=== PATIENT | female | born 1950 | race Caucasian/White ===

== ENCOUNTER 2017-01-22 09:54 | Day surgery (SDC) | payer BC ==
[2017-01-20 12:05] LABS: HEMOGLOBIN 14.3 g/dL (12.0-16.0)
[2017-01-20 12:06] LABS: HEMATOCRIT 42.7 % (36.0-48.0)
--- NOTE | ~2017-01-22 | OP ---
Record Of Operation [facility] [address] [place]. 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 PROCEDURES: 1. Right endoscopic total ethmoidectomy. 2. Right endoscopic endonasal polypectomy. 3. Right endoscopic frontal sinusotomy. 4. Stereotactic monitoring. ANESTHESIA: General. COMPLICATIONS: None. COUNTS: All counts correct following the procedure. ESTIMATED BLOOD LOSS: 10 mL. PREOPERATIVE INFORMED CONSENT: We discussed risks and benefits of surgery including bleeding, infection, possible CSF leak, possible ocular injury including blindness, possible recurrence of the papilloma, and consent is on the chart. PROCEDURE IN DETAIL: The patient was brought to the operating suite, placed on the operating table in supine position. General endotracheal anesthesia was initiated without incident. The patient's head and neck was cleaned, prepped, and draped in the usual sterile fashion. Following this, the Safe N Clear stereotactic monitor device was placed on the forehead and calibration was performed noted to be in excellent calibration with good resolution. Following this, starting on the right hand side of the nose using a 0 degree endoscope the inferior middle turbinate and right lateral nasal wall as well as the right periorbital region was injected with approximately 7 mL total of 1% lidocaine with 1:100,000 epinephrine for hemostasis. Following this, starting with a 0 degree endoscope using a straight [place], several polyps were removed from the ethmoid cavity and these were sent for frozen section and these came back consistent with possible inverting papilloma. Then using the Xomed sinus shaver, the polypoid disease was removed back to the base of what was left of the middle turbinate. Using the stereotactic monitoring throughout the case to avoid injury to the orbit or the base of skull. The inverting papilloma and polypoid disease was tracked all the way back to the fovea ethmoidalis. There was also noted to be a small defect in the lamina papyracea that was present from previous surgery and care was taken to avoid this area. The nasal frontal duct was cleared of polypoid disease up to the apex of the middle turbinate. The remaining ethmoid air cells were marsupialized and the polypoid disease removed up to the base of skull where great care was taken at the skull base, thus removing the polypoid disease out of the mucosa service taking care not to disrupt any bone at this level. Specimens sent in formalin for permanent pathology. Bleeding was controlled Record Of Operation [address] [address] NAME: SEKOU LEE : 46 STATUS : [facility]#: [id number] AGE: 66 ADM/REG DATE : 01/22/17 MR#: [id number] REPORT SERV DATE: 01/22/17 DICTATED BY: ELLEN HODGE DATE: 01/22/17 REPORT STATUS : Draft TRANSCRIBED BY: MODL DATE: 01/22/17 using topical Adrenalin on pledgets. Patient was awakened from anesthesia and taken to the recovery room in stable condition. HAROON/SAMANTHAL Ellen Hodge M.D. / [id number] CC: Airam Mishra M.D. James Folkening, M.D.
[~2017-01-22 09:54] MED LIST: HALF81 PO; MULTIPLE VIT PO; NASONEX NAS; ZYRTEC ALLGY10 MG PO
== END 2017-01-22 17:46 | disposition home or self-care (01) ==
LOC: SDC 09:54
PROVIDERS: Otolaryngology
PROC: 099S4ZZ Drainage of Right Frontal Sinus, Percutaneous Endoscopic Approach (ICD-10-PCS; 2017-01-22)
PROC: 09BU4ZZ Excision of Right Ethmoid Sinus, Percutaneous Endoscopic Approach (ICD-10-PCS; principal; 2017-01-22 11:15)
PROC: 8E09XBZ Computer Assisted Procedure of Head and Neck Region (ICD-10-PCS; 2017-01-22 11:15)
DX: D16.4 Benign neoplasm of bones of skull and face (principal); Z88.2 Allergy status to sulfonamides
CPT/HCPCS: 85014; 85018; 88305; 88331; 88342; 88360; 93005; A9270-GY; J0690; J2250; J2405; J2710; J3010